=== PATIENT | male | born 2000 | race Caucasian/White ===

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

== ENCOUNTER → 2019-03-13 | Outpatient (CLI) | payer SELFPAY ==
[~2019-03-13] MED LIST changes: +FAMO-119 PO; +PRD20T PO
--- NOTE | 2019-03-13 09:20 | Diagnostic Imaging Report ---
PROCEDURE: CT head without contrast. TECHNIQUE: Multiple contiguous axial images were obtained through the brain without the use of intravenous contrast. Auto Exposure Controls were utilized during the CT exam to meet ALARA standards for radiation dose reduction. INDICATION: Postconcussion. This study is less than optimal due to motion and streak artifact. FINDINGS: There is no mass, shift to the midline or hemorrhage to suggest an acute intracranial abnormality. The ventricles are not abnormally dilated and stable in size when compared to prior exam of 04/17/2012. The bone windows show no sign of a fracture or of a destructive lesion. The orbits and sinuses were not visualized in their entirety. Where visualized, there is no acute abnormality. IMPRESSION: 1. There is no evidence for an acute intracranial abnormality on this suboptimal exam. 2. If clinical concern regarding an acute abnormality persists, then MRI would be recommended for further evaluation if the patient can be safely sedated. 3. These results were discussed with Dr. Buck. Dictated by: Dictated on workstation # [id number]
== END ==
LOC: RAD 08:21
PROVIDERS: ATTEND Nurse Practitioner Primary Care
DX: F07.81 Postconcussional syndrome (principal)
CPT/HCPCS: 70450

== ENCOUNTER 2021-01-16 11:41 | Emergency (ER) | payer SELFPAY ==
[~2021-01-16] VITALS: Ht 200.6 cm; Wt 86.2 kg
[2021-01-16] MEDS ORDERED: TETANUS,DIPTH,PERTUSS P/F (BOOSTRIX) 0.5 ML VIAL IM ONE (12:30)
[2021-01-16] MEDS ORDERED: diphenhydrAMINE 50 MG/ML INJ (BENADRYL) IJ ONE (12:30)
[2021-01-16] MEDS ORDERED: diphenhydrAMINE 50 MG/ML INJ (BENADRYL) ONE (12:37)
--- NOTE | 2021-01-16 12:58 | Diagnostic Imaging Report ---
INDICATION: Thumb laceration. EXAMINATION: Right thumb 01/16/2021 FINDINGS: 3 views of the thumb. There is a focal soft tissue irregularity overlying the tip of the thumb towards the dorsum. Adjacent hyperdensities within the soft tissues could represent foreign bodies with displaced osseous fragments also possible. There is a focal lucency within the underlying tip of the distal 1st phalanx consistent with a fracture. The joint spaces appear preserved. Remaining hand unremarkable. IMPRESSION: 1. Soft tissue abnormality containing multifocal hyperdensities which could represent displaced fracture fragments with foreign bodies not excluded. 2. Nondisplaced fracture of the tip of the distal 1st phalanx. Dictated by: Dictated on workstation # [id number]
[2021-01-16] MEDS ORDERED: HYDROcodone/APAP 7.5 MG/325 MG (LORTAB, LORCET PLUS) TABLET PO ONE (14:00)
--- NOTE | 2021-01-16 14:21 | ED Upper Extremity ---
General Chief Complaint: Laceration Stated Complaint: R THUMB LAC Nursing Triage Note: PT TO FT 2 W REPORTS OF RIGHT THUMB LAC SX YESTERDAY WHEN HE CUT IT ON A SAW BLADE. PT REPORTS HE WENT TO [facility] YESTERDAY WHERE HE WAS ADVISED THE CUT WAS DOWN TO THE BONE AND TO SEEK ED TREATMENT. PT WENT HOME AND SUPERGLUED THE LAC HIMSELF. TO ED TODAY FOR INCREASING PAIN. PT A&OX4. History of Present Illness Date Seen by Provider: Jan 16, 2021 Time Seen by Provider: 12:00 Initial Comments 20-year-old male presents to the emergency department today with a chief complaint of right thumb laceration yesterday at about 1 PM. Patient states he was using a band saw when he cut his thumb. He states he applied a little "superglue" to the wound and continue to work. He went to urgent care today and they advised him to come to the emergency department after an x-ray which showed some bone involvement. Patient cannot recall his last tetanus. He complains of some numbness to the tip of the finger/thumb and also some pain. No fevers or chills reported. No circumferential swelling or redness reported. He is right-hand dominant. All other review of systems reviewed and negative except as stated. Onset: yesterday Severity: moderate Pain/Injury Location: right thumb Method of Injury: other (band saw injury) Modifying Factors: Worse With Movement Allergies and Home Medications Allergies Coded Allergies: No Known Drug Allergies (Unverified , 04/17/12) Patient Home Medication List Home Medication List Reviewed: Yes Famotidine (Pepcid) 20 Mg Tablet, 20 MG PO BID WITH MEALS Prescribed by: SUHAS NASH on 09/12/1615 Prednisone (Prednisone) 20 Mg Tab, 20 MG PO DAILY Prescribed by: SUHAS NASH on 09/12/1615 Review of Systems Constitutional: see HPI EENTM: no symptoms reported Respiratory: no symptoms reported Cardiovascular: no symptoms reported Gastrointestinal: no symptoms reported Genitourinary: no symptoms reported Musculoskeletal: other (right thumb pain) Skin: other (laceration ) All Other Systems Reviewed Negative Unless Noted: Yes Past Gibzgnr-Snqwso-Btunxc Hx Patient Social History Tobacco Use?: Yes Tobacco type used: Cigarettes Smoking Status: Current Everyday Smoker Substance use?: No Alcohol Use?: Yes Alcohol Frequency: Once in a while Immunizations Up To Date Tetanus Booster (TDap): Unknown First/Initial COVID19 Vaccinat: NONE Second COVID19 Vaccination Denis: NONE Third COVID19 Vaccination Date: NONE COVID19 Vaccine Destination Specialist: NONE Past Medical History Surgeries: No Respiratory: No Cardiac: No Neurological: No Gastrointestinal: No Musculoskeletal: No Endocrine: No Cancer: No Psychosocial: No Integumentary: No Blood Disorders: No Physical Exam Vital Signs Vital Signs - First Documented 01/16/21 11:50 Temp 36.8 Pulse 55 Resp 20 B/P (MAP) 131/72 (91) Pulse Ox 100 O2 Delivery Room Air Capillary Refill : Less Than 3 Seconds Height, Weight, BMI Height: 6'4.00" Weight: 200lbs. oz. 90.449897zn; 21.00 BMI Method:Estimated General Appearance: WD/WN Neck: normal inspection Cardiovascular: regular rate, rhythm Respiratory: no respiratory distress, no accessory muscle use Shoulder: normal inspection, non-tender, no evidence of injury, normal ROM Elbow/Forearm: normal inspection, non-tender, no evidence of injury, normal ROM Wrist: Yes normal inspection, Yes non-tender, Yes no evidence of injury, Yes normal ROM Hand: Right (Right thumb, laceration noted from the midpoint of the thumb around the medial aspect extending to the nailbed at the midpoint of the nail approximately 2 cm to 2-1/2 cm in length. No active bleeding. Patient reports some numbness just distal to the laceration. Intact neuro vascularly; able to flex and extend without difficulty), nail injury Neurologic/Tendon: normal motor functions, normal tendon functions Neurologic/Psychiatric: alert, normal mood/affect, oriented x 3 Skin: normal color, warm/dry Progress/Results/Core Measures Results/Orders My Orders Orders - MARIA LUISA HIGGINS MD Dipht,Pertuss(Acell),Tet Adult (Boostrix (01/16/21 12:30) Finger(S) (01/16/21 12:26) Diphenhydramine Injection (Benadryl Inje (01/16/21 12:30) Diphenhydramine Injection (Benadryl Inje (01/16/21 12:37) Hydrocodone/Apap 7.5/325 Tab (Lortab 7. (01/16/21 14:00) Medications Given in ED Current Medications Medications Dose Ordered Sig/Ludivina Route Start Time Stop Time Status Last Admin Dose Admin Acetaminophen/ Hydrocodone Bitart 1 ea ONCE ONCE PO 01/16/21 14:00 01/16/21 14:01 DC 01/16/21 13:59 1 EA Diphenhydramine HCl 50 mg ONCE ONCE IJ 01/16/21 12:30 01/16/21 12:36 DC 01/16/21 12:42 50 MG Diphtheria/ Tetanus/Acell Pertussis 0.5 ml ONCE ONCE IM 01/16/21 12:30 01/16/21 12:31 DC 01/16/21 12:40 0.5 ML Vital Signs/I&O 01/16/21 11:50 Temp 36.8 Pulse 55 Resp 20 B/P (MAP) 131/72 (91) Pulse Ox 100 O2 Delivery Room Air Blood Pressure Mean: 91 Progress Progress Note : Time: 14:19 Progress Note Right thumb laceration medial distal aspect of the thumb at the midpoint or so of the distal phalanx. Thumb was anesthetized with Benadryl secondary to TIFFANIE/amide allergy. A total of 1 cc of 50 mg of Benadryl was used with a half a milligram to each side of the digit for digital block. Partial anesthesia was obtained. Patient thumb was soaked in Betasept and saline. Scrubbed with an OR scrub brush and cleaned. Wound margins stayed approximated. Irrigated well. Dressed with some Neosporin and a dry gauze bandage. Thumb splint was applied for protection. Patient will be sent home with a prescription for some Keflex 500mg 4 times a day for the next 7 days. Patient was instructed to wash the wound daily twice a day. Neosporin for a couple of days. Monitor the wound for signs of infection. Follow-up with his primary care physician. Patient is comfortable with this plan of care. All questions are sought and answered. Diagnostic Imaging Diagonstic Imaging: Xray Comments [facility] [place], [place] NAME: BLANCA BERRIOS [facility] REC#: [id number] PT STATUS: REG ER : 2000 PHYSICIAN: MARIA LUISA HIGGINS MD ADMIT DATE: 01/16/21/ER Signed Date of Exam:01/16/21 FINGER(S) INDICATION: Thumb laceration. EXAMINATION: Right thumb 01/16/2021 FINDINGS: 3 views of the thumb. There is a focal soft tissue irregularity overlying the tip of the thumb towards the dorsum. Adjacent hyperdensities within the soft tissues could represent foreign bodies with displaced osseous fragments also possible. There is a focal lucency within the underlying tip of the distal 1st phalanx consistent with a fracture. The joint spaces appear preserved. Remaining hand unremarkable. IMPRESSION: 1. Soft tissue abnormality containing multifocal hyperdensities which could represent displaced fracture fragments with foreign bodies not excluded. 2. Nondisplaced fracture of the tip of the distal 1st phalanx. Dictated by: Dictated on workstation # [id number] Dict: 01/16/21 1254 Trans: 01/16/21 1257 [id number] Interpreted by: MARLENI MARION MD Electronically signed by: MARLENI MARION MD 01/16/21 1257 Departure Impression Primary Impression: Open fracture of tuft of distal phalanx of right thumb Disposition: 01 HOME, SELF-CARE Condition: Stable Departure-Patient Inst. Decision time for Depature: 14:22 Referrals: [facility] (PCP) Primary Care Physician FATEMEH ROSENBAUM MD Patient Instructions: Hand Fracture ED Add. Discharge Instructions: Please take the antibiotics as prescribed, Keflex 500 mg 4 times a day for the next 7 days. [id number] ibuprofen 3 to 4 tablets which is 600 to 800 mg every 6-8 hours with food as needed for pain. Keep the right thumb elevated to reduce swelling. Wash the laceration site twice daily with normal soap and water. Apply Neosporin to the wound after each wash. Keep a dry gauze bandage over the wound until it starts to scab. I have given you contact information for the orthopedic surgeon on-call who manages bone fractures. If you have any redness to the thumb, drainage of pus, swelling of the entire thumb or worsening pain please come back to the emergency room for reevaluation. Scripts Cephalexin (Cephalexin) 500 Mg Tablet 500 MG PO QID for 7 Days, #28 TAB Prov: MARIA LUISA HIGGINS MD 01/16/21 MARIA LUISA HIGGINS MD Jan 16, 2021 14:21
[2021-01-16] MEDS ORDERED: CEPH500T PO (14:24)
[2021-01-16 14:29] VITALS: BP 111/73
== END 2021-01-16 14:29 | disposition home or self-care (01) ==
LOC: EDUNIT# 11:41 → ER 11:42
DX: S62.524B Nondisplaced fracture of distal phalanx of right thumb, initial encounter for open fracture (principal); F17.210 Nicotine dependence, cigarettes, uncomplicated; Z23 Encounter for immunization; W31.2XXA Contact with powered woodworking and forming machines, initial encounter
CPT/HCPCS: 73140; 90715